=== PATIENT | female | born 1990 | race Caucasian/White ===

== ENCOUNTER → 2022-10-07 14:50 | Outpatient (BNVA) | payer OTHER, SELFPAY | PROVIDERS: Family Provider Family Medicine; PCP Family Medicine; Visit Provider Obstetrics & Gynecology | DX: Z01.419 Encounter for gynecological examination (general) (routine) without abnormal findings (principal); Z30.9 Encounter for contraceptive management, unspecified | CPT/HCPCS: 83036; 87624 ==

== ENCOUNTER → 2023-03-21 14:19 | Outpatient (BNVA) | payer OTHER, SELFPAY | PROVIDERS: Family Provider Family Medicine; PCP Family Medicine; Visit Provider Obstetrics & Gynecology | DX: Z32.00 Encounter for pregnancy test, result unknown (principal) | CPT/HCPCS: 84702 ==

== ENCOUNTER → 2023-03-24 13:55 | Outpatient (BNVA) | payer OTHER, SELFPAY | PROVIDERS: Family Provider Family Medicine; PCP Family Medicine; Visit Provider Obstetrics & Gynecology | DX: N94.6 Dysmenorrhea, unspecified (principal); Z32.00 Encounter for pregnancy test, result unknown; R10.32 Left lower quadrant pain; R93.89 Abnormal findings on diagnostic imaging of other specified body structures | CPT/HCPCS: 76817; 84702; 85025; 86900 ==

== ENCOUNTER → 2023-03-29 07:50 | Day surgery (SDC) | payer OTHER, SELFPAY ==
[2023-03-28 15:29] VITALS: BMI 20.9
[2023-03-29 08:27] LABS: Basophils # 0.1 10^3/uL (0.0-0.1); Basophils % 0.5 %; Eosinophils # 0.1 10^3/uL (0.0-0.8); Eosinophils % 0.9 %; Hematocrit 29.9 % (37.0-47.0); Hemoglobin 9.2 g/dL (11.5-15.3); Lymphocytes # 2.3 10^3/uL (0.8-4.8); Lymphocytes % 24.1 %; Mean Corpuscular HGB Conc 30.8 g/dL (30.0-36.0); Mean Corpuscular Hemoglobin 28.8 pg (28.0-34.0); Mean Corpuscular Volume 93.4 fl (81-99); Mean Platelet Volume 9.1 fL (7.4-10.4); Monocytes # 0.4 10^3/uL (0.2-0.9); Monocytes % 3.9 %; Neutrophils # 6.76 10^3/uL (1.8-7.7); Neutrophils % 70.1 %; Nucleated Red Blood Cells % 0 %; Platelet Count 330 10^3/cmm (130-400); White Blood Count 9.7 10^3/uL (4.0-10.0)
[2023-03-29 08:52] LABS: HCG Quantitative 54.07 mIU/mL
[2023-03-29 09:03] LABS: Alanine Aminotransferase 16 U/L (0-33); Albumin Level 3.7 g/dL (3.5-5.2); Alkaline Phosphatase 48 U/L (35-105); Anion Gap 14.2 (5-19); Aspartate Amino Transferase 12 U/L (0-32); Blood Urea Nitrogen 11 mg/dL (6-20); Calcium 8.7 mg/dL (8.5-10.5); Carbon Dioxide 24 mmol/L (22-29); Chloride 107 mmol/L (98-107); Globulin 2.7 g/dL (1.3-4.6); Glomerular Filtration Rate 115.1 mL/min (90-130); Glucose 83 mg/dL (65-115); Osmolality Calculated 291 mOsm/kg (285-295); Potassium 4.2 mmol/L (3.5-5.1); Sodium 141 mmol/L (136-145); Total Bilirubin 0.2 mg/dL (0.15-1.2); Total Protein 6.4 g/dL (6.6-8.7)
[2023-03-29 09:11] LABS: Add Urine Microscopic? YES; Bilirubin Urine Neg (Negative); Blood Urine 3+ (Negative); Glucose Urine UA Norm (Normal); Ketones Urine Negative (Negative); Leukocyte Esterase Urine 1+ (Negative); Nitrate Urine Negative (Negative); Protein Urine Neg (Negative); Urine Color Yellow (Yellow); Urobilinogen Urine Norm (Negative); pH Urine 5 (5-7)
[2023-03-29 09:12] LABS: Bacteria Urine TRACE /hpf; RBC Urine 0-4 /hpf (0-2)
[2023-03-29] MEDS: sodium chloride 0.9% 500 ML IV (09:26)
[2023-03-29] MEDS: scopolamine 1.5 Patch 1 PATCH TRANSDERMA (09:26)
[2023-03-29] MEDS: sodium chloride 0.9% 1,000 ML 30 ML IV (09:26)
--- NOTE | 2023-03-29 09:48 | W.PM.OPSUD ---
Surgery/Procedure H&P Update DATE OF PROCEDURE: March 29, 2023 DATE H&P PERFORMED: 03/27/23 H&P UPDATE INFORMATION: I have reviewed H&P completed within last 30 days, I have examined patient prior to procedure and No changes to prior documentation PREOP DIAGNOSIS: Incomplete AB PLANNED PROCEDURE: Operation Date: 03/29/23 10:15 Proposed Procedures p Suction dilation and curettage 93453,O03.4(Not Applicable) - Sonu Isaac MD
[2023-03-29] MEDS: ceFAZolin 2,000 MG in sodium chloride 0.9% (plus) 50 ML 100 MG IV (10:04)
[2023-03-29] MEDS: lidocaine-epi 2% 20 mL INJ 10 ML INJECTION (10:30)
[2023-03-29 10:40] VITALS: BP 99/54; PULSE 93; RESP 16; TEMP 36.3; O2SAT 100
--- NOTE | 2023-03-29 10:40 | PM.OP ---
Operative Report Date of procedure: March 29, 2023 Pre-op diagnosis: Preop Diagnosis Incomplete AB Post-op diagnosis: Same Procedure done: Suction dilation and curettage Specimens removed/disposition: Part of conception Surgeon: Sonu Isaac MD Estimated blood loss (mL): 25 IV fluids (mL): 300 Brief History: Mrs. Skinner 33-year-old female G1, P0 with an EGA of approximately 6 to 7 weeks with an incomplete miscarriage. Procedure: After informed consent, the patient was taken to the Operating Room where general anesthesia was administered. The patient was examined under anesthesia and found to have a normal uterus with normal adnexa. She was placed in the dorsal lithotomy position and prepped and draped in sterile fashion. A sterile weighted speculum was placed in the patient?s vagina. A single-tooth tenaculum was then applied to the cervix. The uterus was then gently sounded to 8 cm and a suction curette was advanced gently to the uterine fundus and product of conception emptied. A sharp curettage was then performed until a gritty texture was noted. There was minimal bleeding noted and the tenaculum was removed with good hemostasis noted. The patient tolerated the procedure well. The patient was taken to the recovery area in stable condition.
[2023-03-29 10:45] VITALS: BP 100/57; PULSE 91; RESP 16; O2SAT 100
[2023-03-29 10:50] VITALS: BP 95/53; PULSE 84; RESP 16; O2SAT 100
[2023-03-29 10:55] VITALS: BP 96/56; PULSE 82; RESP 16; O2SAT 100
[2023-03-29 10:59] VITALS: BP 96/54; PULSE 89; RESP 16; TEMP 36.7; O2SAT 99
[2023-03-29] MEDS: ibuprofen 800 mg tablet PO (12:12)
--- NOTE | 2023-03-29 14:42 | ANES.PREANE2 ---
Pre-Anesthetic Assessment Height/Weight: Height 1.8 m Weight 68.039 kg Temp Pulse Resp BP Pulse Ox O2 Del Method 98.1 F 89 16 96/54 99 Room Air 03/29/23 10:59 03/29/23 10:59 03/29/23 10:59 03/29/23 10:59 03/29/23 10:59 03/29/23 10:59 Preop Diagnosis: Incomplete AB Operation Date: 03/29/23 10:15 Proposed Procedures p Suction dilation and curettage 02303,O03.4(Not Applicable) - Sonu Isaac MD Familial anesthetic complications: none Was Beta Neda taken within 24 hours: N/A Was Clonidine taken within 24 hours: N/A Last intake: Intake Last Liquid Date 03/28/23 Last Liquid Time 22:30 Last Solid Date 03/28/23 Last Solid Time 22:30 Social Tobacco and No alcohol Exam alert, oriented x 3, clear to auscultation bilaterally and regular rate & rhythm Airway Submandibular: within normal limits Cervical ROM: within normal limits Mallampati: Class II Dentition: full History/ROS No significant history except as noted Anesthetic Plan ASA status: 2 Anesthesia: General Medications/Allergies Home Medications Medication Instructions Recorded Confirmed Last Taken Type ibuprofen 800 mg tablet 800 mg PO Q8H PRN pain #60 tabs 10/07/22 03/28/23 03/28/23 Rx ibuprofen 800 mg tablet 800 mg PO TID postoperative pain 03/29/23 03/29/23 Unknown Rx #60 tabs Allergies Allergy/AdvReac Type Severity Reaction Status Date / Time codeine Allergy Intermediate just Verified 03/27/23 15:39 doesn't like the way it makes her feel. Current Medications Generic Name Dose Route Start Last Admin Trade Name Freq PRN Reason Stop Dose Admin Sodium Chloride 1,000 mls @ 30 mls/hr 03/29/23 09:15 03/29/23 11:16 Sodium Chloride 0.9% IV 03/30/23 09:14 Infused .Q24H RYDER Infusion PFSH Anesthesia Medical History Encounter for well woman exam with routine gynecological exam Family History Father Hypertension Cancer lung cancer dx at age 60, metastasized, . Sister Cancer cancer dx at age 37,unknown type, PET scan suggestive of colon and breast. Denies family history of Colon cancer Ovarian cancer Diabetes Clotting disorder Heart disease Hyperlipidemia Breast cancer Anesthesia complication Bleeding disorder Uterine cancer Thyroid condition Stroke Social History Smoking and tobacco status: current every day smoker cigarettes [ Other cigarette details: 4 cigs/day] Alcohol intake: current Alcohol intake frequency: holidays/special occasions only Alcohol type: beer and wine Substance/Drug Use: never Data Anesthesia 03/29/23 08:13 03/29/23 08:13 Short CBC 03/29/23 Range/Units 08:13 WBC 9.7 (4.0-10.0) 10^3/uL Hgb 9.2 L (11.5-15.3) g/dL Hct 29.9 L (37.0-47.0) % MCV 93.4 (81-99) fl Plt Count 330 (130-400) 10^3/cmm Neut % (Auto) 70.1 % Neut # (Auto) 6.76 (1.8-7.7) 10^3/uL BMP 03/29/23 08:13 Sodium 141 Potassium 4.2 Chloride 107 Carbon Dioxide 24 BUN 11 Creatinine 0.6 Glucose 83 Calcium 8.7 Liver Function 03/29/23 Range/Units 08:13 Total Bilirubin 0.2 (0.15-1.2) mg/dL AST 12 (0-32) U/L ALT 16 (0-33) U/L Alkaline Phosphatase 48 (35-105) U/L Albumin 3.7 (3.5-5.2) g/dL Urine 03/29/23 Range/Units 08:25 Urine Color Yellow (Yellow) Urine Appearance Sl cloudy A (CLEAR) Urine pH 5 (5-7) Ur Specific [place] 1.030 (1.005-1.030) Urine Protein Neg (Negative) Urine Glucose (UA) Norm (Normal) Urine Ketones Negative (Negative) Urine Nitrate Negative (Negative) Urine Bilirubin Neg (Negative) Ur Leukocyte Esterase 1+ H (Negative) Urine RBC 0-4 H (0-2) /hpf Urine WBC 5-10 H (0-5) /hpf Blood Bank 03/29/23 08:13 Blood Type A Positive Rho(D) Type Positive Antibody Screen Negative Cardiac Studies: No Data to Display
--- NOTE | 2023-03-29 15:31 | ANE.PACU2 ---
Inpatient post-anesthesia follow up: Airway intact: Yes Vital signs: Temperature 98.1 F Pulse Rate 89 Respiratory Rate 16 Blood Pressure 96/54 Pulse Oximetry 99 Oxygen Delivery Me thod Room Air Oxygen Flow Rate Fraction of Inspir ed Oxygen Hydration adequate: Yes Nausea and vomiting: No Pain level: 2 Mental status: Baseline
== END | disposition home or self-care (01) ==
PROVIDERS: PCP Family Medicine; Visit Provider Obstetrics & Gynecology
PROC: (CPT 59812; principal; 2023-03-29 10:05)
DX: O03.4 Incomplete spontaneous abortion without complication (principal); F17.200 Nicotine dependence, unspecified, uncomplicated
CPT/HCPCS: 59812; 36415; 80053; 81001; 81025; 81229; 84702; 85025; 86850; 86900; 88305; A4216; J0690; J1100; J2250; J2405; J2704; J3010; J7030; J7040

== ENCOUNTER → 2023-08-23 10:12 | Outpatient (BNVA) | payer OTHER, SELFPAY | PROVIDERS: PCP Family Medicine; Visit Provider Nurse Practitioner Women's Health | DX: Z34.91 Encounter for supervision of normal pregnancy, unspecified, first trimester (principal); Z3A.09 9 weeks gestation of pregnancy | CPT/HCPCS: 76817; 81025 ==

== ENCOUNTER → 2023-08-29 07:46 | Outpatient (BNVA) | payer OTHER, SELFPAY | PROVIDERS: PCP Family Medicine; Visit Provider Nurse Practitioner Women's Health | DX: O09.899 Supervision of other high risk pregnancies, unspecified trimester; O99.330 Smoking (tobacco) complicating pregnancy, unspecified trimester | CPT/HCPCS: 80307; 84315; 85027; 86592; 86762; 86803; 86850; 86900; 87086; 87340; 87806 ==

== ENCOUNTER → 2023-09-15 11:00 | Outpatient (BNVA) | payer OTHER, SELFPAY | PROVIDERS: PCP Family Medicine; Visit Provider Obstetrics & Gynecology | DX: O09.899 Supervision of other high risk pregnancies, unspecified trimester (principal); Z34.90 Encounter for supervision of normal pregnancy, unspecified, unspecified trimester | CPT/HCPCS: 81000; 87491; 87591 ==

== ENCOUNTER → 2023-10-06 12:36 | Outpatient (BNVA) | payer OTHER, SELFPAY | PROVIDERS: PCP Family Medicine; Visit Provider Nurse Practitioner Women's Health | DX: O09.899 Supervision of other high risk pregnancies, unspecified trimester (principal); O99.330 Smoking (tobacco) complicating pregnancy, unspecified trimester | CPT/HCPCS: 81000 ==

== ENCOUNTER → 2023-10-20 08:55 | Outpatient (BNVA) | payer OTHER, SELFPAY | PROVIDERS: PCP Family Medicine; Visit Provider Obstetrics & Gynecology | DX: O09.899 Supervision of other high risk pregnancies, unspecified trimester (principal); Z3A.00 Weeks of gestation of pregnancy not specified | CPT/HCPCS: 82105 ==

== ENCOUNTER → 2023-11-08 14:13 | Outpatient (BNVA) | payer OTHER, SELFPAY | PROVIDERS: PCP Family Medicine; Visit Provider Obstetrics & Gynecology | DX: Z34.92 Encounter for supervision of normal pregnancy, unspecified, second trimester (principal); Z3A.20 20 weeks gestation of pregnancy | CPT/HCPCS: 76805 ==

== ENCOUNTER → 2023-11-10 08:44 | Outpatient (BNVA) | payer OTHER, SELFPAY | PROVIDERS: PCP Family Medicine; Visit Provider Obstetrics & Gynecology | DX: O09.899 Supervision of other high risk pregnancies, unspecified trimester (principal); Z3A.00 Weeks of gestation of pregnancy not specified | CPT/HCPCS: 81000 ==

== ENCOUNTER → 2023-12-06 09:04 | Outpatient (BNVA) | payer OTHER, SELFPAY | PROVIDERS: PCP Family Medicine; Visit Provider Nurse Practitioner Women's Health | DX: Z34.90 Encounter for supervision of normal pregnancy, unspecified, unspecified trimester (principal) | CPT/HCPCS: 76816 ==

== ENCOUNTER → 2023-12-08 11:00 | Outpatient (BNVA) | payer OTHER, SELFPAY | PROVIDERS: PCP Family Medicine; Visit Provider Nurse Practitioner Women's Health | DX: O09.899 Supervision of other high risk pregnancies, unspecified trimester (principal); O99.332 Smoking (tobacco) complicating pregnancy, second trimester; Z3A.24 24 weeks gestation of pregnancy | CPT/HCPCS: 81000; 82950 ==

== ENCOUNTER → 2024-01-03 08:49 | Outpatient (BNVA) | payer OTHER, SELFPAY | PROVIDERS: PCP Family Medicine; Visit Provider Obstetrics & Gynecology | DX: O09.899 Supervision of other high risk pregnancies, unspecified trimester (principal); Z3A.28 28 weeks gestation of pregnancy | CPT/HCPCS: 81000; 85025 ==

== ENCOUNTER → 2024-01-19 07:53 | Outpatient (BNVA) | payer OTHER, SELFPAY | PROVIDERS: PCP Family Medicine; Visit Provider Obstetrics & Gynecology | DX: O09.899 Supervision of other high risk pregnancies, unspecified trimester (principal); Z3A.30 30 weeks gestation of pregnancy | CPT/HCPCS: 80053; 81000; 82570; 84156; 84550; 85025 ==

== ENCOUNTER → 2024-02-02 08:42 | Outpatient (BNVA) | payer OTHER, SELFPAY | PROVIDERS: PCP Family Medicine; Visit Provider Obstetrics & Gynecology | DX: O09.899 Supervision of other high risk pregnancies, unspecified trimester (principal); Z3A.32 32 weeks gestation of pregnancy | CPT/HCPCS: 81000 ==

== ENCOUNTER 2024-02-03 23:20 | Outpatient (CLI) | payer OTHER, SELFPAY ==
[2024-02-03 23:30] VITALS: BP 132/57; PULSE 79
[2024-02-03 23:46] VITALS: BP 113/61; PULSE 78
[2024-02-03 23:47] VITALS: BMI 27.1
[2024-02-03 23:54] VITALS: BP 113/61; PULSE 78
== END 2024-02-03 23:56 | disposition home or self-care (01) ==
LOC: OPOB 23:20 → OBGYN 23:21
PROVIDERS: PCP Family Medicine; Visit Provider Obstetrics & Gynecology
DX: O26.899 Other specified pregnancy related conditions, unspecified trimester (principal); Z3A.00 Weeks of gestation of pregnancy not specified; R10.9 Unspecified abdominal pain
CPT/HCPCS: 59025; 99211

== ENCOUNTER 2024-02-03 23:57 | Emergency (ER) | payer OTHER, SELFPAY ==
[2024-02-04 00:06] VITALS: BP 114/61; PULSE 73; RESP 16; TEMP 36.7; O2SAT 99; BMI 27.1
--- NOTE | 2024-02-04 00:13 | USR_ITS ---
PROCEDURE INFORMATION: Exam: US Abdomen, Limited; Right Upper Quadrant Exam date and time: 02/04/2024 1:30 AM Age: 33 years old Clinical indication: Abdominal pain; Localized; Right upper quadrant (ruq); ; Additional info: Ruq/back pain; 30 wks preg TECHNIQUE: Imaging protocol: Real time ultrasound of the abdomen with image documentation. Limited exam focused on the right upper quadrant. COMPARISON: [place] [id number] 12/06/2023 9:09 AM FINDINGS: Liver: Normal. No masses. Gallbladder: There is mild gallbladder wall thickening measuring 3 mm. However, the gallbladder appears contracted. Biliary ducts: Normal. No stones. No dilation. Pancreas: Visualized pancreas is unremarkable. Right kidney: There is moderate hydronephrosis and hydroureter seen on the right without evidence of obstructing ureteral calculi. This may be secondary to extrinsic compression from the gravid uterus. US/US gall bladder [id number] IMPRESSION: Moderate hydronephrosis and hydroureter present on the right without evidence of obstructing ureteral calculi. Extrinsic compression of the ureter by the gravid uterus could have this appearance.
--- NOTE | 2024-02-04 00:13 | W.ED.ABDPA2 ---
Documented by User: PATSY House 02/04/24 00:31 HPI - Abdominal Pain General: Chief Complaint: Abdominal Pain Stated Complaint: OB thinks gallbladder. baby is good Time Seen by Provider: 02/04/24 00:03 Source: patient Mode of arrival: ambulatory Limitations: no limitations History of Present Illness: Patient is a 33-year-old [id number] female at roughly 30-31 weeks for evaluation of RUQ abdominal pain x 1 week. She feels like pain is intermittent but worsening this evening thus prompting her evaluation. She was initially seen at OB and had fetus monitored which was normal. She was then referred to the ED stating her OB provider thought it could be her gallbladder. She feels like pain radiates around into her back and shoulder blades. She initially felt like it was secondary to baby positioning. She is not having N/V. Reports constipation but attributes that to . She has not been running fevers. No recent illness. She does not complain of cough, shortness of breath, difficulty breathing, or chest pain. She arrives with stable vital signs. Denies urinary complaints apart from urinary frequency that she attributes to . MD elicited complaint: abdominal pain Pertinent past history: none Onset (ago): day(s) Pain Consistency: intermittent Location: RUQ Severity: moderate Radiation: back Migration to: no migration Exacerbating factors: nothing Relieving factors: nothing Associated Symptoms: Reports constipation (attributes to ); Denies chills, GI cramping, dysuria, fever(s), nausea, syncope and vomiting Related Data: Patient : Yes Review of Systems Const: Denies: fever(s), chills, body aches, fatigue or malaise Card: Denies: chest pain, palpitations, irregular heart rhythm, lightheadedness, syncope or pre-syncope Resp: Denies: dyspnea, productive cough, non-productive cough, pain on inspiration, hemoptysis or chest congestion GI: Reports: abdominal pain and constipation (attributes to ); Denies: nausea, vomiting or GI cramping : Reports: urinary frequency (attributes to ); Denies: flank pain, difficulty voiding, dysuria, urinary urgency or urinary hesitancy Musc: Reports: back pain; Denies: neck pain, extremity pain, extremity swelling, joint pain or joint swelling Skin/Breast: Denies: rash Neuro: Denies: headache(s), numbness in extremities, weakness in extremities or sensory changes PFSH ED PFSH: Medical History No pertinent past medical history neghx: htn,dm,thyroid,dvt/pe PCP: none PMS (premenstrual syndrome) Dysmenorrhea Surgical History H/O hand surgery right H/O dilation and curettage performed by Dr. Isaac Family History Father Hypertension Cancer lung cancer dx at age 60, metastasized, . Sister Cancer cancer dx at age 37,unknown type, PET scan suggestive of colon and breast. Denies family history of Colon cancer Ovarian cancer Diabetes Clotting disorder Heart disease Hyperlipidemia Breast cancer Anesthesia complication Bleeding disorder Uterine cancer Thyroid disease Stroke Physical Exam Const: COMMON NORMALS: no acute distress, average body habitus, patient oriented x3, no limitations, healthy appearing, alert and well nourished Eye: COMMON NORMALS: no scleral icterus Chest: COMMONS NORMALS: normal inspection of the chest and normal palpation of entire chest wall Resp: COMMON NORMALS: normal respiratory effort and clear to auscultation bilaterally AUSCULTATION: clear to auscultation bilaterally Cardio: COMMON NORMALS: regular rate and regular rhythm RATE: regular rate RHYTHM: regular rhythm GI: COMMON NORMALS: Normal to inspection, nondistended, normoactive bowel sounds present, Soft to palpation, No hepatosplenomegaly present and no masses INSPECTION: Yes normal to inspection and Yes gravid abdomen AUSCULTATION: Yes normoactive bowel sounds PALPATION: Yes Soft to palpation, Yes Tenderness to palpation present (GI) (mild RUQ tenderness), No Guarding due to palpation present (GI), No Rigid due to palpation and Yes No hepatosplenomegaly present : COMMON NORMALS: Yes no CVA tenderness BLADDER/KIDNEY EXAM: Yes no CVA tenderness Back/Pelvis: COMMON NORMALS: no CVA tenderness, thoracic and lumbar spine normal to inspection, no thoracic nor lumbar tenderness and thoraco-lumbar ROM normal Extremity: GENERAL: Yes normal exam except as noted Neuro: COMMON NORMALS: patient oriented x3, moves all extremities, no focal motor deficits, no sensory deficits noted and gait normal SENSORIUM/ORIENTATION: Yes alert Skin: COMMON NORMALS: no rashes or lesions noted GENERAL SKIN EXAM: no rashes or lesions noted Course Vital Signs: Vital signs: Vital Signs Temperature 98.1 F 02/04/24 00:06 Pulse Rate 72 02/04/24 02:40 Respiratory Rate 14 02/04/24 04:17 Blood Pressure 95/61 02/04/24 04:17 Pulse Oximetry 99 02/04/24 04:17 Oxygen Delivery Me thod Room Air 02/04/24 02:40 MDM - Abdominal Pain Lab Data 02/04/24 00:18 02/04/24 00:18 Labs/Radiology: Radiology Impressions Gallbladder Ultrasound 02/04/24 00:13 IMPRESSION: Moderate hydronephrosis and hydroureter present on the right without evidence of obstructing ureteral calculi. Extrinsic compression of the ureter by the gravid uterus could have this appearance. Abdomen/Pelvis CT 02/04/24 02:00 IMPRESSION: There is hydronephrosis and hydroureter present on the right secondary to compression of the ureter the gravid uterus. Laboratory Results WBC 11.58 10^3/uL (3.29-11.43) H 02/04/24 00:18 RBC 3.10 10^6/uL (3.85-5.65) L 02/04/24 00:18 Hgb 9.20 g/dL (11.27-16.99) L 02/04/24 00:18 Hct 28.4 % (36-47) L 02/04/24 00:18 MCV 91.6 fl (85-98) 02/04/24 00:18 MCH 29.7 pg (27-33) 02/04/24 00:18 MCHC 32.4 g/dL (30-55) 02/04/24 00:18 RDW 14.0 % (12.1-15.1) 02/04/24 00:18 Plt Count 269 10^3/cmm (157-399) 02/04/24 00:18 MPV 8.9 fL (7.4-10.4) 02/04/24 00:18 Neut % (Auto) 62.5 % 02/04/24 00:18 Lymph % (Auto) 28.8 % 02/04/24 00:18 [place] % (Auto) 6.6 % 02/04/24 00:18 Eos % (Auto) 0.7 % 02/04/24 00:18 Baso % (Auto) 0.3 % 02/04/24 00:18 Neut # (Auto) 7.24 10^3/uL (1.8-7.7) 02/04/24 00:18 Lymph # (Auto) 3.3 10^3/uL (0.8-4.8) 02/04/24 00:18 [place] # (Auto) 0.8 10^3/uL (0.2-0.9) 02/04/24 00:18 Eos # (Auto) 0.1 10^3/uL (0.0-0.8) 02/04/24 00:18 Baso # (Auto) 0.0 10^3/uL (0.0-0.1) 02/04/24 00:18 Nucleated RBC % (auto) 0 % 02/04/24 00:18 Nucleated RBCs # 0.0 /100WBC 02/04/24 00:18 Sodium 137 mmol/L (136-145) 02/04/24 00:18 Potassium 3.7 mmol/L (3.5-5.1) 02/04/24 00:18 Chloride 104 mmol/L (98-107) 02/04/24 00:18 Carbon Dioxide 21 mmol/L (22-29) L 02/04/24 00:18 Anion Gap 15.7 (5-19) 02/04/24 00:18 BUN 6 mg/dL (6-20) 02/04/24 00:18 Creatinine 0.4 mg/dL (0.5-0.9) L 02/04/24 00:18 GFR Calculation 183.8 mL/min (90-130) H 02/04/24 00:18 Glucose 98 mg/dL (65-115) 02/04/24 00:18 Calculated Osmolality 282 mOsm/kg (285-295) L 02/04/24 00:18 Calcium 8.7 mg/dL (8.5-10.5) 02/04/24 00:18 Total Bilirubin 0.2 mg/dL (0.15-1.2) 02/04/24 00:18 AST 20 U/L (0-32) 02/04/24 00:18 ALT 34 U/L (0-33) H 02/04/24 00:18 Alkaline Phosphatase 89 U/L (35-105) 02/04/24 00:18 Total Protein 6.1 g/dL (6.6-8.7) L 02/04/24 00:18 Albumin 3.3 g/dL (3.5-5.2) L 02/04/24 00:18 Globulin 2.8 g/dL (1.3-4.6) 02/04/24 00:18 Lipase 27 U/L (13-60) 02/04/24 00:18 Urine Color Yellow (Yellow) 02/04/24 Unknown Urine Appearance Hazy (CLEAR) A 02/04/24 Unknown Urine pH 6 (5-7) 02/04/24 Unknown Ur Specific [place] 1.020 (1.005-1.030) 02/04/24 Unknown Urine Protein Neg (Negative) 02/04/24 Unknown Urine Glucose (UA) Norm (Normal) 02/04/24 Unknown Urine Ketones Negative (Negative) 02/04/24 Unknown Urine Blood Neg (Negative) 02/04/24 Unknown Urine Nitrate Negative (Negative) 02/04/24 Unknown Urine Bilirubin Neg (Negative) 02/04/24 Unknown Urine Urobilinogen Neg mg/dL (Negative) 02/04/24 Unknown Ur Leukocyte Esterase 2+ (Negative) H 02/04/24 Unknown Urine RBC 0-4 /hpf (0-2) H 02/04/24 Unknown Urine WBC 25-40 /hpf (0-5) H 02/04/24 Unknown Ur Squamous Epith Cells 15-25 /hpf (0-5) H 02/04/24 Unknown Amorphous Sediment Trace /hpf 02/04/24 Unknown Urine Bacteria 2+ /hpf (NONE) H 02/04/24 Unknown Urine Mucus Trace /hpf 02/04/24 Unknown Discharge Plan Discharge Patient Disposition: Home Clinical Impression: Pyelonephritis, Renal colic Condition: Stable Prescriptions: New Percocet 7.5-325 mg tablet 1 tab PO Q6H PRN (Reason: pain) Qty: 10 0RF ondansetron 4 mg tablet,disintegrating 4 mg PO Q6H PRN (Reason: nausea and vomiting) Qty: 14 0RF cefdinir 300 mg capsule 300 mg PO BID 7 Days Qty: 14 0RF No Action Classic 28 mg iron- 800 mcg tablet 1 tab PO DAILY famotidine [Pepcid] 20 mg tablet 20 mg PO DAILY Discharge Orders: Discharge ED (Routine); Ordered 02/04/24 Ordered By: Hardeep Huang Referrals: Myles Hopkins MD [Primary Care Provider] - Patient Instructions: Abdominal Pain (ED), Opioid Safety, Pain Management Activity Restrictions/Additional Instructions: Antibiotics as directed. Plenty of clear liquids. Return for worsening pain despite treatment, vomiting liquids or medications, fever greater than 100 despite antibiotics, evidence of vaginal bleeding or loss of fluid, etc. Call your doctor on Monday and let them know you were seen here and your diagnosis. They may wish to see you or provide further recommendations. Coding Level of Care Code ED Photo Lab Manager for Chg Fwd Documented by User: Hardeep Hunag, 02/04/24 04:54 HPI - Abdominal Pain General: Chief Complaint: Abdominal Pain Stated Complaint: OB thinks gallbladder. baby is good Time Seen by Provider: 02/04/24 00:03 [facility] ED PFSH: Medical History No pertinent past medical history neghx: htn,dm,thyroid,dvt/pe PCP: none PMS (premenstrual syndrome) Dysmenorrhea Surgical History H/O hand surgery right H/O dilation and curettage performed by Dr. Isaac Family History Father Hypertension Cancer lung cancer dx at age 60, metastasized, . Sister Cancer cancer dx at age 37,unknown type, PET scan suggestive of colon and breast. Denies family history of Colon cancer Ovarian cancer Diabetes Clotting disorder Heart disease Hyperlipidemia Breast cancer Anesthesia complication Bleeding disorder Uterine cancer Thyroid disease Stroke Course Vital Signs: Vital signs: Vital Signs Temperature 98.1 F 02/04/24 00:06 Pulse Rate 72 02/04/24 02:40 Respiratory Rate 14 02/04/24 04:17 Blood Pressure 95/61 02/04/24 04:17 Pulse Oximetry 99 02/04/24 04:17 Oxygen Delivery Me thod Room Air 02/04/24 02:40 MDM - Abdominal Pain Medical Decision Making 33-year-old female presenting with right upper quadrant/right flank pain. She was originally seen by Mrs. ServinGasper ROGERS. I agree with her history, evaluation, and treatment. She has had no vaginal bleeding. She still feeling baby movement. She was evaluated in OB prior to her arrival here. Her creatinine is 0.4. White blood cell count 11.6. Liver enzymes are normal. Lipase is 27. She has 2+ leukocyte Estrace with a slightly contaminated urinalysis containing 25-40 white blood cells. Ultrasound of the gallbladder was negative for cholecystitis, but shows moderate hydronephrosis and hydroureter on the right. There is no definite evidence of obstructing renal calculus, but due to evidence of UTI/pyelonephritis, was necessary to rule out mechanical obstruction. She remains afebrile. She has received Rocephin here as well as a fluid bolus. She will be allowed home on antibiotics as she is not vomiting. She received antiemetics and pain medication. Close outpatient follow-up will be necessary. She was told to call her OB tomorrow/Monday morning. Lab Data 02/04/24 00:18 02/04/24 00:18 Labs/Radiology: Radiology Impressions Gallbladder Ultrasound 02/04/24 00:13 IMPRESSION: Moderate hydronephrosis and hydroureter present on the right without evidence of obstructing ureteral calculi. Extrinsic compression of the ureter by the gravid uterus could have this appearance. Abdomen/Pelvis CT 02/04/24 02:00 IMPRESSION: There is hydronephrosis and hydroureter present on the right secondary to compression of the ureter the gravid uterus. Laboratory Results WBC 11.58 10^3/uL (3.29-11.43) H 02/04/24 00:18 RBC 3.10 10^6/uL (3.85-5.65) L 02/04/24 00:18 Hgb 9.20 g/dL (11.27-16.99) L 02/04/24 00:18 Hct 28.4 % (36-47) L 02/04/24 00:18 MCV 91.6 fl (85-98) 02/04/24 00:18 MCH 29.7 pg (27-33) 02/04/24 00:18 MCHC 32.4 g/dL (30-55) 02/04/24 00:18 RDW 14.0 % (12.1-15.1) 02/04/24 00:18 Plt Count 269 10^3/cmm (157-399) 02/04/24 00:18 MPV 8.9 fL (7.4-10.4) 02/04/24 00:18 Neut % (Auto) 62.5 % 02/04/24 00:18 Lymph % (Auto) 28.8 % 02/04/24 00:18 [place] % (Auto) 6.6 % 02/04/24 00:18 Eos % (Auto) 0.7 % 02/04/24 00:18 Baso % (Auto) 0.3 % 02/04/24 00:18 Neut # (Auto) 7.24 10^3/uL (1.8-7.7) 02/04/24 00:18 Lymph # (Auto) 3.3 10^3/uL (0.8-4.8) 02/04/24 00:18 [place] # (Auto) 0.8 10^3/uL (0.2-0.9) 02/04/24 00:18 Eos # (Auto) 0.1 10^3/uL (0.0-0.8) 02/04/24 00:18 Baso # (Auto) 0.0 10^3/uL (0.0-0.1) 02/04/24 00:18 Nucleated RBC % (auto) 0 % 02/04/24 00:18 Nucleated RBCs # 0.0 /100WBC 02/04/24 00:18 Sodium 137 mmol/L (136-145) 02/04/24 00:18 Potassium 3.7 mmol/L (3.5-5.1) 02/04/24 00:18 Chloride 104 mmol/L (98-107) 02/04/24 00:18 Carbon Dioxide 21 mmol/L (22-29) L 02/04/24 00:18 Anion Gap 15.7 (5-19) 02/04/24 00:18 BUN 6 mg/dL (6-20) 02/04/24 00:18 Creatinine 0.4 mg/dL (0.5-0.9) L 02/04/24 00:18 GFR Calculation 183.8 mL/min (90-130) H 02/04/24 00:18 Glucose 98 mg/dL (65-115) 02/04/24 00:18 Calculated Osmolality 282 mOsm/kg (285-295) L 02/04/24 00:18 Calcium 8.7 mg/dL (8.5-10.5) 02/04/24 00:18 Total Bilirubin 0.2 mg/dL (0.15-1.2) 02/04/24 00:18 AST 20 U/L (0-32) 02/04/24 00:18 ALT 34 U/L (0-33) H 02/04/24 00:18 Alkaline Phosphatase 89 U/L (35-105) 02/04/24 00:18 Total Protein 6.1 g/dL (6.6-8.7) L 02/04/24 00:18 Albumin 3.3 g/dL (3.5-5.2) L 02/04/24 00:18 Globulin 2.8 g/dL (1.3-4.6) 02/04/24 00:18 Lipase 27 U/L (13-60) 02/04/24 00:18 Urine Color Yellow (Yellow) 02/04/24 Unknown Urine Appearance Hazy (CLEAR) A 02/04/24 Unknown Urine pH 6 (5-7) 02/04/24 Unknown Ur Specific [place] 1.020 (1.005-1.030) 02/04/24 Unknown Urine Protein Neg (Negative) 02/04/24 Unknown Urine Glucose (UA) Norm (Normal) 02/04/24 Unknown Urine Ketones Negative (Negative) 02/04/24 Unknown Urine Blood Neg (Negative) 02/04/24 Unknown Urine Nitrate Negative (Negative) 02/04/24 Unknown Urine Bilirubin Neg (Negative) 02/04/24 Unknown Urine Urobilinogen Neg mg/dL (Negative) 02/04/24 Unknown Ur Leukocyte Esterase 2+ (Negative) H 02/04/24 Unknown Urine RBC 0-4 /hpf (0-2) H 02/04/24 Unknown Urine WBC 25-40 /hpf (0-5) H 02/04/24 Unknown Ur Squamous Epith Cells 15-25 /hpf (0-5) H 02/04/24 Unknown Amorphous Sediment Trace /hpf 02/04/24 Unknown Urine Bacteria 2+ /hpf (NONE) H 02/04/24 Unknown Urine Mucus Trace /hpf 02/04/24 Unknown All radiology interpretation(s) finalized by discharge Discharge Plan Discharge Patient Disposition: Home Clinical Impression: Pyelonephritis, Renal colic Condition: Stable Prescriptions: New Percocet 7.5-325 mg tablet 1 tab PO Q6H PRN (Reason: pain) Qty: 10 0RF ondansetron 4 mg tablet,disintegrating 4 mg PO Q6H PRN (Reason: nausea and vomiting) Qty: 14 0RF cefdinir 300 mg capsule 300 mg PO BID 7 Days Qty: 14 0RF No Action Classic 28 mg iron- 800 mcg tablet 1 tab PO DAILY famotidine [Pepcid] 20 mg tablet 20 mg PO DAILY Discharge Orders: Discharge ED (Routine); Ordered 02/04/24 Ordered By: Hardeep Huang Referrals: Myles Hopkins MD [Primary Care Provider] - Patient Instructions: Abdominal Pain (ED), Opioid Safety, Pain Management Activity Restrictions/Additional Instructions: Antibiotics as directed. Plenty of clear liquids. Return for worsening pain despite treatment, vomiting liquids or medications, fever greater than 100 despite antibiotics, evidence of vaginal bleeding or loss of fluid, etc. Call your doctor on Monday and let them know you were seen here and your diagnosis. They may wish to see you or provide further recommendations. Coding Level of Care Code ED Photo Lab Manager for Bobbi Boyer
[2024-02-04 00:19] VITALS: BP 114/61; PULSE 82; RESP 26; O2SAT 97
[2024-02-04 00:29] LABS: Basophils % 0.3 %; Eosinophils # 0.1 10^3/uL (0.0-0.8); Eosinophils % 0.7 %; Hematocrit 28.4 % (36-47); Lymphocytes # 3.3 10^3/uL (0.8-4.8); Lymphocytes % 28.8 %; Mean Corpuscular HGB Conc 32.4 g/dL (30-55); Mean Corpuscular Hemoglobin 29.7 pg (27-33); Mean Corpuscular Volume 91.6 fl (85-98); Mean Platelet Volume 8.9 fL (7.4-10.4); Monocytes # 0.8 10^3/uL (0.2-0.9); Monocytes % 6.6 %; Neutrophils # 7.24 10^3/uL (1.8-7.7); Neutrophils % 62.5 %; Nucleated Red Blood Cells % 0 %; Platelet Count 269 10^3/cmm (157-399); White Blood Count 11.58 10^3/uL (3.29-11.43)
[2024-02-04 00:40] VITALS: BP 114/61; PULSE 88; O2SAT 100
[2024-02-04 00:47] LABS: Alanine Aminotransferase 34 U/L (0-33); Albumin Level 3.3 g/dL (3.5-5.2); Alkaline Phosphatase 89 U/L (35-105); Anion Gap 15.7 (5-19); Aspartate Amino Transferase 20 U/L (0-32); Blood Urea Nitrogen 6 mg/dL (6-20); Calcium 8.7 mg/dL (8.5-10.5); Carbon Dioxide 21 mmol/L (22-29); Chloride 104 mmol/L (98-107); Globulin 2.8 g/dL (1.3-4.6); Glomerular Filtration Rate 183.8 mL/min (90-130); Glucose 98 mg/dL (65-115); Lipase 27 U/L (13-60); Osmolality Calculated 282 mOsm/kg (285-295); Potassium 3.7 mmol/L (3.5-5.1); Sodium 137 mmol/L (136-145); Total Bilirubin 0.2 mg/dL (0.15-1.2); Total Protein 6.1 g/dL (6.6-8.7)
[2024-02-04 00:48] LABS: Creatinine Clr Calc Pharmacy 238.0856
[2024-02-04 00:56] LABS: Add Urine Microscopic? YES; Bilirubin Urine Neg (Negative); Blood Urine Neg (Negative); Glucose Urine UA Norm (Normal); Ketones Urine Negative (Negative); Leukocyte Esterase Urine 2+ (Negative); Nitrate Urine Negative (Negative); Protein Urine Neg (Negative); Urine Appearance Hazy (CLEAR); Urine Color Yellow (Yellow); Urobilinogen Urine Neg (Negative); pH Urine 6 (5-7)
[2024-02-04 01:02] LABS: Amorphous Sediment Urine TRACE /hpf; Bacteria Urine 2+ /hpf; Mucus Urine TRACE /hpf; RBC Urine 0-4 /hpf (0-2); Squamous Epithelial Cell Urine 15-25 /hpf (0-5); WBC Urine 25-40 /hpf (0-5)
--- NOTE | 2024-02-04 02:00 | CTR_ITS ---
PROCEDURE INFORMATION: Exam: CT Abdomen And Pelvis Without Contrast Exam date and time: 02/04/2024 2:08 AM Age: 33 years old Clinical indication: Abdominal pain; Right; Patient HX: RT flank pain with bacteriuria. [place] noted on renal US. ; Additional info: R flank pain, hydronephrosis on renal US, UTI, 30w TECHNIQUE: Imaging protocol: Computed tomography of the abdomen and pelvis without contrast. Radiation optimization: All CT scans at this facility use at least one of these dose optimization techniques: automated exposure control; mA and/or kV adjustment per patient size (includes targeted exams where dose is matched to clinical indication); or iterative reconstruction. COMPARISON: US gall bladder [id number] 02/04/2024 1:30 AM RADIATION DOSE METRICS: Total DLP (mGy-cm): 713.53 FINDINGS: Liver: Normal. No mass. Gallbladder and bile ducts: Normal. No calcified stones. No ductal dilation. Pancreas: Normal. No ductal dilation. Spleen: Normal. No splenomegaly. Adrenal glands: Normal. No mass. Kidneys and ureters: There is hydronephrosis and hydroureter seen on right. There is no evidence of obstructing ureteral calculi. There is compression of the right ureter secondary to the mass effect of the gravid uterus (series 3: Images 137-145). Stomach and bowel: Unremarkable. No obstruction. No mucosal thickening. Appendix: No evidence of appendicitis. Intraperitoneal space: Unremarkable. No free air. No significant fluid collection. Vasculature: Unremarkable. No abdominal aortic aneurysm. Lymph nodes: Unremarkable. No enlarged lymph nodes. Urinary bladder: Unremarkable as visualized. Reproductive: Placenta is anterior. Bones/joints: Unremarkable. No acute fracture. Soft tissues: Unremarkable. Other findings: presentation is vertex. CT/CT kidney stone [id number] IMPRESSION: There is hydronephrosis and hydroureter present on the right secondary to compression of the ureter the gravid uterus.
[2024-02-04 02:27] VITALS: RESP 16; O2SAT 99
[2024-02-04] MEDS: ondansetron 2 mg/ML SDV 2 mL 4 MG IVP (02:27)
[2024-02-04] MEDS: morphine 4 mg/mL SDV 1 mL IVP (02:27)
[2024-02-04] MEDS: sodium chloride 0.9% 1,000 ML 999 ML IV (02:27)
[2024-02-04] MEDS: cefTRIAXone 1,000 MG in sodium chloride 0.9% (plus) 50 ML 100 MG IV (02:29)
[2024-02-04 02:40] VITALS: BP 122/69; PULSE 72; O2SAT 100
[2024-02-04 04:17] VITALS: BP 95/61; RESP 14; O2SAT 99
== END 2024-02-04 04:24 | disposition home or self-care (01) ==
PROVIDERS: Physician Assistant; Emergency Provider Emergency Medicine; PCP Family Medicine
DX: O23.03 Infections of kidney in pregnancy, third trimester (principal); Z3A.31 31 weeks gestation of pregnancy
CPT/HCPCS: 74176; 76705; 80053; 81001; 83690; 85025; 96374; 96375; 99285; J0696; J2270; J2405; J7030

== ENCOUNTER → 2024-02-14 07:49 | Outpatient (BNVA) | payer OTHER, SELFPAY | PROVIDERS: PCP Family Medicine; Visit Provider Obstetrics & Gynecology | DX: Z34.90 Encounter for supervision of normal pregnancy, unspecified, unspecified trimester (principal) | CPT/HCPCS: 76816 ==

== ENCOUNTER 2024-02-16 15:15 | Outpatient (CLI) | payer OTHER, SELFPAY ==
[2024-02-16 15:15] VITALS: RESP 17; BMI 28.3
[2024-02-16 15:35] VITALS: BP 112/55; PULSE 74
[2024-02-16 15:50] VITALS: BP 109/56; PULSE 79
== END 2024-02-16 16:00 ==
LOC: OPOB 15:23 → OBGYN 15:24
PROVIDERS: PCP Family Medicine; Visit Provider Obstetrics & Gynecology
DX: O99.019 Anemia complicating pregnancy, unspecified trimester (principal); Z3A.00 Weeks of gestation of pregnancy not specified; R63.5 Abnormal weight gain
CPT/HCPCS: 59025; 80053; 81000; 82570; 82607; 82728; 82746; 83550; 84156; 85025; 99211

== ENCOUNTER → 2024-02-26 11:45 | Outpatient (BNVA) | payer OTHER, SELFPAY | PROVIDERS: PCP Family Medicine; Visit Provider Obstetrics & Gynecology | DX: O09.899 Supervision of other high risk pregnancies, unspecified trimester (principal); Z3A.36 36 weeks gestation of pregnancy | CPT/HCPCS: 81000; 87081 ==

== ENCOUNTER → 2024-03-04 07:54 | Outpatient (BNVA) | payer OTHER, SELFPAY | PROVIDERS: PCP Family Medicine; Visit Provider Obstetrics & Gynecology | DX: O09.899 Supervision of other high risk pregnancies, unspecified trimester (principal); Z3A.37 37 weeks gestation of pregnancy | CPT/HCPCS: 81000 ==

== ENCOUNTER → 2024-03-11 11:00 | Outpatient (BNVA) | payer OTHER, SELFPAY | PROVIDERS: PCP Family Medicine; Visit Provider Obstetrics & Gynecology | DX: O09.899 Supervision of other high risk pregnancies, unspecified trimester (principal); O99.013 Anemia complicating pregnancy, third trimester; Z3A.38 38 weeks gestation of pregnancy | CPT/HCPCS: 81000; 85025 ==

== ENCOUNTER → 2024-03-18 07:54 | Outpatient (BNVA) | payer OTHER, SELFPAY | PROVIDERS: PCP Family Medicine; Visit Provider Obstetrics & Gynecology | DX: O09.899 Supervision of other high risk pregnancies, unspecified trimester (principal); Z3A.39 39 weeks gestation of pregnancy | CPT/HCPCS: 81000 ==

== ENCOUNTER 2024-03-20 07:15 | Inpatient (IN) | payer OTHER, SELFPAY ==
[2024-03-20] VITALS (81 sets, daily range): BP systolic 54–175; BP diastolic 32–95; PULSE 50–92; RESP 18–20; TEMP 36.5–36.6; O2SAT 94–100; BMI 27.9
[2024-03-20] MEDS: lactated ringers 1,000 ML 999 ML IV ×4 (07:50→23:15)
--- NOTE | 2024-03-20 08:44 | PM.OPHPUD ---
Labor & Delivery H&P Update Date of Procedure: March 20, 2024 Date H&P Performed: 03/18/24 H&P update information: I have reviewed H&P completed within last 30 days, I have examined patient prior to procedure and No changes to prior documentation Admission Diagnosis:
[2024-03-20 08:47] LABS: Basophils # 0.1 10^3/uL (0.0-0.1); Basophils % 0.4 %; Eosinophils # 0.1 10^3/uL (0.0-0.8); Eosinophils % 0.6 %; Hematocrit 32.6 % (36-47); Lymphocytes # 2.6 10^3/uL (0.8-4.8); Lymphocytes % 22.9 %; Mean Corpuscular HGB Conc 33.1 g/dL (30-55); Mean Corpuscular Hemoglobin 30.3 pg (27-33); Mean Corpuscular Volume 91.6 fl (85-98); Mean Platelet Volume 9.5 fL (7.4-10.4); Monocytes # 0.5 10^3/uL (0.2-0.9); Monocytes % 4.4 %; Neutrophils # 7.95 10^3/uL (1.8-7.7); Neutrophils % 70.5 %; Nucleated Red Blood Cells % 0 %; Platelet Count 296 10^3/cmm (157-399); Red Blood Count 3.56 10^6/uL (3.85-5.65); Red Cell Distribution Width 14.6 % (12.1-15.1)
[2024-03-20] MEDS: dextrose 5%-lactated ringers 1,000 ML 125 ML IV (09:16)
[2024-03-20] MEDS: miSOPROStol 100 mcg tablet 25 MCG VAGINAL ×3 (09:21→17:30)
--- NOTE | 2024-03-20 14:32 | P.ANESASSM_ITS ---
Pre-Anesthetic Assessment Height/Weight: Height 1.78 m Weight 88.451 kg Pulse Resp BP O2 Del Method 80 18 110/63 Room Air 03/20/24 13:50 03/20/24 08:28 03/20/24 13:50 03/20/24 07:05 Epidural Familial anesthetic complications: None Was Beta Neda taken within 24 hours: N/A Was Clonidine taken within 24 hours: N/A Last intake: Noon today solid food Social Tobacco and No tobacco <0.5 pack(s) per day Exam alert, oriented x 3, clear to auscultation bilaterally and regular rate & rhythm Airway Submandibular: within normal limits Cervical ROM: within normal limits Mallampati: Class III Dentition: full History/ROS No significant history except as noted and No significant complaints Pulmonary None reported CV/HEM Anemia Hx kidney infection Hepatic None reported GI Gastroesophageal Reflux Disease N/V Metabolic None reported Musc/skel Lower Back Pain Neuropsych None reported Anesthetic Plan ASA status: 2 Anesthesia: Anesthesia Evaluation, General and Regional (specify below) Other: Epidural Risk of > 500 ml blood loss (7ml/kg in children): Yes, adequate IV access and fluids planned Medications/Allergies Home Medications Medication Instructions Recorded Confirmed Last Taken Type vits no.126-ferrous fum 1 tab PO DAILY 09/15/23 03/18/24 02/03/24 History 28 mg iron-folic acid 800 mcg tablet (Classic ) famotidine 20 mg tablet (Pepcid) 20 mg PO DAILY 12/08/23 03/18/24 02/03/24 History ferrous sulfate 325 mg (65 mg 325 mg PO BID Anemia 30 days #60 02/04/24 03/18/24 Unknown Rx iron) tablet tabs ondansetron 4 mg disintegrating 4 mg PO Q6H PRN nausea and 02/04/24 03/18/24 Unknown Rx tablet vomiting #14 tabs Allergies Allergy/AdvReac Type Severity Reaction Status Date / Time codeine Allergy Intermediate just Verified 03/04/24 09:22 doesn't like the way it makes her feel. Current Medications Generic Name Dose Route Start Last Admin Trade Name Freq PRN Reason Stop Dose Admin Dextrose/Lactated Ringer's 1,000 mls @ 125 mls/hr 03/20/24 08:30 03/20/24 09:16 Dextrose 5%-Lactated Ringers IV 125 mls/hr .Q8H RYDER Administration Lactated Ringer's 1,000 mls @ 999 mls/hr 03/20/24 08:27 03/20/24 09:20 Lactated Ringers IV Infused .Q1H1M PRN Infusion Per L&D Rescitation Protocol Misoprostol 25 mcg 03/20/24 08:30 03/20/24 13:21 Misoprostol 100 Mcg Tablet VAGINAL 03/20/24 16:31 25 mcg Q4H RYDER Administration PFSH Anesthesia Medical History No pertinent past medical history neghx: htn,dm,thyroid,dvt/pe PCP: none PMS (premenstrual syndrome) Dysmenorrhea Surgical History H/O hand surgery right H/O dilation and curettage performed by Dr. Isaac Family History Father Hypertension Cancer lung cancer dx at age 60, metastasized, . Sister Cancer cancer dx at age 37,unknown type, PET scan suggestive of colon and breast. Denies family history of Colon cancer Ovarian cancer Diabetes Clotting disorder Heart disease Hyperlipidemia Breast cancer Anesthesia complication Bleeding disorder Uterine cancer Thyroid disease Stroke Female Reproductive History : 1 Data Anesthesia 03/20/24 07:40 Short CBC 03/20/24 Range/Units 07:40 WBC 11.30 (3.29-11.43) 10^3/uL Hgb 10.80 L (11.27-16.99) g/dL Hct 32.6 L (36-47) % MCV 91.6 (85-98) fl Plt Count 296 (157-399) 10^3/cmm Neut % (Auto) 70.5 % Neut # (Auto) 7.95 H (1.8-7.7) 10^3/uL Blood Bank 03/20/24 07:40 Blood Type A Positive Rho(D) Type Rh positive Antibody Screen Negative Cardiac Studies: 2 No Data to Display
[2024-03-20] MEDS: fentaNYL 50 mcg/mL INJ 2mL IVP (19:26)
[2024-03-20] MEDS: ROPivacaine syringe 100 MG/50 ML SYRINGE 10 MG EPIDURAL ×2 (20:10→23:08)
--- NOTE | 2024-03-20 20:14 | ANES.PROC ---
Anesthesia Procedures Procedure/Date: 03/20/24 Epidural: Time Out Performed: Yes Consents Signed: Procedure Consent and NPO Consent Consent: requested by attending/covering physician, from patient, risks and benefits reviewed and patient agrees to proceed Lumbar Level: L3-L4 Epidural position: sitting Epidural procedure: sterile prep of area (betadine), 1% lidocaine to numb the area (3 mLs), neg for paresthesia, test dose given, 1.5% xylocaine 1:200k epi (3 mL/2 mL), 0.2% Ropivacaine bolus ml (5 mLs), placed PCEA, no systemic response, sterile dressing applied, L.U.D. no apparent complications and 0.2% Ropiavacaine @ mls/hr (10 mLs/hr) Additional Comments: Attempt x1. NAVJOT 6cm, catheter threaded to 10cm.
[2024-03-20] MEDS: calcium carbonate 500 mg Chew Tablet 1000 MG PO (22:38)
[2024-03-21] VITALS (43 sets, daily range): BP systolic 104–148; BP diastolic 52–88; PULSE 64–97; RESP 12–18; TEMP 36.4–37.1; O2SAT 94–100
--- NOTE | 2024-03-21 00:13 | P.MISC_ITS ---
Miscellaneous Note Purpose of Documentation: Called to OB 3 due to patients complaints of pain. Pain is noted to be in b ilateral hips. Patient dilated to 9cm. Catheter still at original placement depth. After negative aspiration, 100mcg fentanyl given via epidural and infusion increased to 13mL/hr.
[2024-03-21] MEDS: lactated ringers 1,000 ML 999 ML IV ×2 (00:22→13:43)
--- NOTE | 2024-03-21 01:08 | PM.DELIVERY ---
Delivery Note: Date of delivery: March 21, 2024 Pre-delivery diagnoses: Term Desire permanent sterilization Post-delivery diagnoses: Term delivered Desire permanent sterilization Procedure: Spontaneous vaginal delivery Delivering Physician: Sonu Isaac MD Estimated blood loss (mL): 300 Findings: Term female with weight 3330 g, Apgars 9/9 Delivery: The patient was noted to be complete and pushing, so was placed in the dorsal lithotomy position, prepped and draped in the usual sterile fashion for a vaginal delivery. Pt. Noted to have epidural anesthesia. At 0053 the patient delivered a viable term female infant weighing 3330g with scores of 9 and 9 at one and five minutes, respectively. The vertex was delivered spontaneously over intact perineum. The patient was asked to push and the head delivered spontaneously in the SOPHIE position, over an intact perineum. A nuchal cord was checked and none noted. The anterior shoulder delivered easily and the posterior shoulder followed. The remainder of the was easily delivered and the oropharynx and nasopharynx was bulb suctioned. The was noted to have spontaneous cry and spontaneous movement of all four extremities. The cord was clamped x 2 and cut and noted to have 2 arteries and one vein. The was passed to the mother's abdomen where nursing personnel were in attendance. The placenta delivered intact spontaneously and the uterus was explored. 20 units of Pitocin was placed in the IV bag to firm the uterus. Examination of the cervix and vaginal vault did not reveal any lacerations. A vaginal pack was then placed. Examination of the perineum showed no laceration. The vaginal pack was then removed. The patient tolerated this procedure well, and recovered in L&D with her infant in their LDR room. All sponge and needle counts were correct. Post-Delivery Status: Good and stable History History History 5 Term 0 0 Miscarriages/Ectopic 4 Living Children 0 A&P Assessment and plan (1) Term delivered: Coding Level of Care Code Acute Code for Chg Fwd Diagnoses Term delivered O80
--- NOTE | 2024-03-21 01:15 | P.PN_ITS ---
Subjective 2 Subjective: Mrs. Martines 34-year-old female status post Font[place] ovarian delivery desires permanent sterilization. Vitals/I&O/Wt Last Vital Signs Temp 97.9 F 03/20/24 22:34 Pulse 81 03/21/24 01:10 Resp 20 H 03/20/24 19:26 BP 134/73 03/21/24 01:10 Pulse Ox 100 03/21/24 00:38 O2 Del Method Room Air 03/20/24 07:05 03/20/24 03/20/24 03/21/24 14:59 22:59 06:59 Intake Total 1000 / 1000 2600 / 3600 1320.833 / 4920.833 Balance 1000 / 1000 2600 / 3600 1320.833 / 4920.833 Weight last 48 hrs Weight 88.451 kg Physical Exam 2 Narrative: GA; alert and oriented x 3 HEENT: normal Breasts: engorged Nipples - skin intact Lungs; clear to auscultation Heart: regular rhythm, no murmurs. Abd: Appropriately tender. BS+. Uterine fundus below umbilicus. No Fundal Tenderness. Perineum: normal lochia. Extremities: no edema, no cyanosis, no tenderness. Urinary Catheter Management: Hdz Latex: Cath Placed During This Visit: yes, but has since been removed by the nurse Reason for Continuing Indwelling Catheter: Decision to DC Catheter Urinary Catheter Date of Insertion: 03/20/24 Urinary Catheter Time of Insertion: 20:35 Date Urinary Catheter Removed: 03/21/24 Time Urinary Catheter Discontinued: 00:40 Data 03/22/24 04:35 A&P Assessment and plan (1) Sterilization: []-year-old female desire permanent sterilization. The patient was counseled regarding all methods of contraception, risk and complications. She elected to continue with plan sterilization after delivery. The bilateral salpingectomy is associated with lower failure rates than interval tubal occlusions done via laparoscopy. She was counseled regarding the procedure, alternative, risks and complications. Complications of tubal sterilization include problems like but not limited to anesthesia, hemorrhage, organ damage, and mortality. Although pregnancies after a sterilization procedure are rare, there is substantial risk that any post-sterilization could be ectopic. The overall failure rate is on the order of 0.5% in the first year but a study showed that sterilization failures vary by both age at sterilization and the method used. The study also found that the risks of accumulate over time, and that for women aged 18 to 27 years, failure rates can be as high as 5% with bipolar coagulation and the spring clip. The patient was informed of the risks and benefits of the procedure. Risks included but were not limited to bleeding, infection, and injury to internal organs. The patient was counseled on the risk of sterilization failure. The patient was informed that in the event a occurs the risk of ectopic is increased. The patient was counseled that bilateral tubal ligation is intended to be permanent and nonreversible. She was also counseled that there are nonpermanent forms of control available to her. The patient expressed understanding of the risks involved, all questions were answered, and the patient consented to the procedure. (2) Term delivered: Plan Proceed with sterilization. Attestations 2 Medical Necessity Statement*: In my professional opinion per admitting diagnosis Coding Level of Care Code Acute Code for Chg Fwd Diagnoses Sterilization Z30.2 Term delivered O80
[2024-03-21] MEDS: famotidine 20 mg/2 mL INJ IVP (13:57)
[2024-03-21] MEDS: citric acid-sodium citrate 30 mL UDC PO (13:57)
[2024-03-21] MEDS: metoclopramide 5 mg/mL SDV 2 mL 10 MG IVP (13:57)
[2024-03-21] MEDS: ceFAZolin 2,000 MG in sodium chloride 0.9% (plus) 50 ML 100 MG IV (13:58)
--- NOTE | 2024-03-21 13:58 | W.PM.OPSUD ---
Surgery/Procedure H&P Update DATE OF PROCEDURE: March 21, 2024 DATE H&P PERFORMED: 03/18/24 H&P UPDATE INFORMATION: I have reviewed H&P completed within last 30 days, I have examined patient prior to procedure and No changes to prior documentation () PLANNED PROCEDURE: Operation Date: 03/21/24 14:10 Proposed Procedures p Post Bilateral Tubal Ligation(Not Applicable) - Sonu Isaac MD
--- NOTE | 2024-03-21 14:00 | PC.NURSE ---
pt to OR2 for tubal.
--- NOTE | 2024-03-21 14:00 | P.ANESASSM_ITS ---
Pre-Anesthetic Assessment Height/Weight: Height 1.78 m Weight 88.451 kg Temp Pulse Resp BP Pulse Ox O2 Del Method 98.7 F 71 16 116/66 99 Room Air 03/21/24 09:11 03/21/24 09:11 03/21/24 09:11 03/21/24 09:11 03/21/24 06:11 03/21/24 09:11 Preop Diagnosis: Undessired fertitity Operation Date: 03/21/24 14:10 Proposed Procedures p Post Bilateral Tubal Ligation(Not Applicable) - Sonu Isaac MD Was Beta Neda taken within 24 hours: N/A Was Clonidine taken within 24 hours: N/A Social No alcohol Exam alert, oriented x 3, clear to auscultation bilaterally and regular rate & rhythm Airway Submandibular: within normal limits Cervical ROM: within normal limits Mallampati: Class II Dentition: full History/ROS No significant history except as noted and No significant complaints Pulmonary None reported CV/HEM None reported None reported Hepatic None reported GI None reported Metabolic None reported Musc/skel None reported Neuropsych None reported Anesthetic Plan ASA status: 2 Anesthesia: Anesthesia Evaluation and General Risk of > 500 ml blood loss (7ml/kg in children): No Medications/Allergies Home Medications Medication Instructions Recorded Confirmed Last Taken Type vits no.126-ferrous fum 1 tab PO DAILY 09/15/23 03/20/24 02/03/24 History 28 mg iron-folic acid 800 mcg tablet (Classic ) famotidine 20 mg tablet (Pepcid) 20 mg PO DAILY 12/08/23 03/20/24 02/03/24 History ferrous sulfate 325 mg (65 mg 325 mg PO BID Anemia 30 days #60 02/04/24 03/20/24 Unknown Rx iron) tablet tabs Allergies Allergy/AdvReac Type Severity Reaction Status Date / Time codeine Allergy Intermediate just Verified 03/04/24 09:22 doesn't like the way it makes her feel. Current Medications Generic Name Dose Route Start Last Admin Trade Name Freq PRN Reason Stop Dose Admin Calcium Carbonate 1,000 mg 03/20/24 08:27 03/20/24 22:38 Calcium Carbonate 500 Mg Chew Tablet PO 1,000 mg Q4H PRN Administration Heartburn/Indigestion (Use 1st) Citric Acid/Sodium Citrate 30 ml 03/21/24 10:25 03/21/24 13:57 Citric Acid-Sodium Citrate 30 Ml Udc PO 30 ml PRN PRN Administration PRIOR TO SURGERY Docusate Sodium 100 mg 03/21/24 09:00 03/21/24 09:13 Docusate Sodium 100 Mg Capsule PO Not Given BID RYDER Famotidine 20 mg 03/21/24 09:00 03/21/24 09:13 Famotidine 20 Mg Tablet PO Not Given DAILY RYDER Famotidine 20 mg 03/21/24 10:25 03/21/24 13:57 Famotidine 20 Mg/2 Ml Inj IVP 20 mg PRN PRN Administration PRIOR TO SURGERY Fentanyl 25 - 100 mcg 03/20/24 08:27 03/20/24 19:26 Fentanyl 50 Mcg/Ml Inj 2ml IVP 25 mcg Q1H PRN Administration SEVERE PAIN Ferrous Sulfate 325 mg 03/21/24 09:00 03/21/24 09:13 Ferrous Sulfate Ec 325 Mg Tablet PO Not Given BID RYDER Dextrose/Lactated Ringer's 1,000 mls @ 125 mls/hr 03/20/24 08:30 03/20/24 23:15 Dextrose 5%-Lactated Ringers IV 0 mls/hr .Q8H RYDER Infusion Lactated Ringer's 1,000 mls @ 999 mls/hr 03/20/24 08:27 03/20/24 20:07 Lactated Ringers IV Infused .Q1H1M PRN Infusion BLEEDING Lactated Ringer's 1,000 mls @ 999 mls/hr 03/20/24 08:27 03/21/24 13:43 Lactated Ringers IV 999 mls/hr .Q1H1M PRN Administration Per L&D Rescitation Protocol Ropivacaine 100 mg in 50 mls @ 10 mls/hr 03/20/24 19:30 03/21/24 01:00 Naropin Syringe EPIDURAL 0 mls/hr .Q5H RYDER Infusion Cefazolin Sodium 2,000 mg/ 50 mls @ 100 mls/hr 03/21/24 13:49 03/21/24 13:58 Sodium Chloride IV 03/21/24 14:18 100 mls/hr [employer] ONE Administration Protocol Ibuprofen 800 mg 03/21/24 09:00 03/21/24 09:14 Ibuprofen 800 Mg Tablet PO Not Given TID RYDER Metoclopramide HCl 10 mg 03/21/24 10:25 03/21/24 13:57 Metoclopramide 5 Mg/Ml Sdv 2 Ml IVP 10 mg PRN PRN Administration PRIOR TO SURGERY Prenat Multivit/Poultry Buyer/Iron/Folic Ac 1 each 03/21/24 09:00 03/21/24 09:14 Vit No.130/Iron/Folic 1 Each Tablet PO Not Given DAILY RYDER PFSH Anesthesia Medical History No pertinent past medical history neghx: htn,dm,thyroid,dvt/pe PCP: none PMS (premenstrual syndrome) Dysmenorrhea Surgical History H/O hand surgery right H/O dilation and curettage performed by Dr. Isaac Family History Father Hypertension Cancer lung cancer dx at age 60, metastasized, . Sister Cancer cancer dx at age 37,unknown type, PET scan suggestive of colon and breast. Denies family history of Colon cancer Ovarian cancer Diabetes Clotting disorder Heart disease Hyperlipidemia Breast cancer Anesthesia complication Bleeding disorder Uterine cancer Thyroid disease Stroke Female Reproductive History : 1 Data Anesthesia 03/20/24 07:40 Short CBC 03/20/24 Range/Units 07:40 WBC 11.30 (3.29-11.43) 10^3/uL Hgb 10.80 L (11.27-16.99) g/dL Hct 32.6 L (36-47) % MCV 91.6 (85-98) fl Plt Count 296 (157-399) 10^3/cmm Neut % (Auto) 70.5 % Neut # (Auto) 7.95 H (1.8-7.7) 10^3/uL Blood Bank 03/20/24 07:40 Blood Type A Positive Rho(D) Type Rh positive Antibody Screen Negative Cardiac Studies: 2 No Data to Display
[2024-03-21] MEDS: BUPivacaine 0.5% INJ 10 mL INJECTION (14:16)
--- NOTE | 2024-03-21 14:46 | PM.OP ---
Operative Report Date of procedure: March 21, 2024 Pre-op diagnosis: Started by spontaneous vaginal delivery. Desire permanent sterilization Post-op diagnosis: same Post-op findings: Enlarged uterus Procedure done: bilateral salpingectomy Specimens removed/disposition: Left and right fallopian tube Surgeon: Sonu Isaac MD Estimated blood loss (mL): 5 IV fluids (mL): 500 Complications: None Brief History: Mrs. Martines 34-year-old female G2, P1 status post spontaneous vaginal delivery. Desires permanent sterilization. Procedure: The patient was informed of the risks and benefits of the procedure. Risks included but were not limited to bleeding, infection, and injury to internal organs. The patient was counseled on the risk of sterilization failure. The patient was informed that in the event a occurs the risk of ectopic is increased. The patient was counseled that bilateral tubal ligation is intended to be permanent and nonreversible. She was also counseled that there are nonpermanent forms of control available to her. The patient expressed understanding of the risks involved, all questions were answered, and the patient consented to the procedure. After assuring informed consent. The patient was taken to the operating room and general anesthesia administered. Time-out procedure was performed. A small, transverse, infraumbilical skin incision was made with a scalpel, and the incision was carried down through the underlying fascia until the peritoneum was identified and entered. The left fallopian tube was identified, brought into the incision and grasped with a Walnut clamp. The tube was then followed out to the fimbria. An avascular midsection of the fallopian tube was grasped with a Walnut clamp and brought into a knuckle. Using the LigaSure fine Fusion device the falopian tube was clamped, seal and cut. The specimen was sent to pathology. Excellent hemostasis was noted, and the tube was returned to the abdomen. The same procedure was performed on the opposite fallopian tube. The fascia was then closed with O-Vicryl in a single layer. The skin was closed with 3-O Monocryl in a subcuticular fashion. The patient tolerated the procedure well. Needle and sponge counts were correct times 3.
[2024-03-21] MEDS: HYDROcodone-acetaminophen 5-325 mg Tablet PO (15:40)
--- NOTE | 2024-03-21 16:30 | PC.NURSE ---
Pt back to room from OR via bed. Instructed to call nursing for assistance getting up out of bed for the first time. Ice water and juice provided.
--- NOTE | 2024-03-21 16:40 | PC.NURSE ---
Pt up to bathroom without difficulty. Void and juju care by pt. Juju pad changed. Pt back to bed without assistance.
[2024-03-21] MEDS: docusate sodium 100 mg Capsule PO (17:46)
[2024-03-21] MEDS: ferrous sulfate EC 325 mg Tablet PO (17:46)
[2024-03-21] MEDS: lanolin oint 7 gm 1 APPLIC TOPICAL (22:37)
[2024-03-21] MEDS: ibuprofen 800 mg tablet PO (22:37)
[2024-03-22 04:32] VITALS: BP 108/64; PULSE 58; RESP 18; TEMP 36.6; O2SAT 98
[2024-03-22 04:44] LABS: Hematocrit 26.7 % (36-47); Mean Corpuscular HGB Conc 32.6 g/dL (30-55); Mean Corpuscular Hemoglobin 30.1 pg (27-33); Mean Corpuscular Volume 92.4 fl (85-98); Mean Platelet Volume 9.3 fL (7.4-10.4); Platelet Count 220 10^3/cmm (157-399); Red Blood Count 2.89 10^6/uL (3.85-5.65); Red Cell Distribution Width 14.7 % (12.1-15.1); White Blood Count 20.11 10^3/uL (3.29-11.43)
--- NOTE | 2024-03-22 08:00 | ANE.PACU2 ---
Inpatient post-anesthesia follow up: Airway intact: Yes Vital signs: Temperature 98.1 F Pulse Rate 77 Respiratory Rate 16 Blood Pressure 115/75 Pulse Oximetry 98 Oxygen Delivery Me thod Room Air Oxygen Flow Rate Fraction of Inspir ed Oxygen Hydration adequate: Yes Nausea and vomiting: No Pain level: 1 Mental status: Baseline Epidural Start/End: Epidural Start Date: 03/20/24 Epidural Start Time: 19:50 Epidural End Date: 03/21/24 Epidural End Time: 01:08
--- NOTE | 2024-03-22 08:06 | PM.OBGYDC ---
Discharge Providers [employer] Date of Admission: 03/20/24 07:15 Date of Discharge: 03/22/24 Attending Provider at Admission: Sonu Isaac MD Attending Provider at Discharge: Sonu Isaac MD Primary [employer]: Sonu Isaac MD Primary Care Provider: Myles Hopkins MD Diagnoses at Discharge Discharge Diagnosis (1) Sterilization: Status: Acute (2) Term delivered: Status: Acute Reason for Visit Reason for Visit: induction of labor Brief History: Mrs. Martines 34-year-old female G5, P0 with an LORRAINE of 2023 and an EGA at 39+3 Hospital Course Hospital Course Mrs. Martines 34-year-old female G5, P0, with term at an estimated gestational age of 39+3, admitted to labor and delivery for elective induction. She received misoprostol for cervical ripening and follow-up with a spontaneous labor and progressed to have spontaneous vaginal delivery without complications. She had requested sterilization and the procedure was performed without complications the following morning after delivery. /postop day observation uneventful. He is afebrile hemodynamically stable. Tolerating diet well. Ambulating without difficulty. She was counseled regarding pelvic rest for 6 weeks (no sex, no tampons, no vaginal douches). Return to the emergency room if any fever, increased bleeding or pain. Information Peripartum Data: Delivery Method: Vaginal Physical Exam Narrative: GA; alert and oriented x 3 HEENT: normal Breasts: engorged Nipples - skin intact Lungs; clear to auscultation Heart: regular rhythm, no murmurs. Abd: Appropriately tender. BS+. Uterine fundus below umbilicus. No Fundal Tenderness. Nontender, minimal tenderness, incision clean and dry, no redness, pain or edema. Perineum: normal lochia. Extremities: no edema, no cyanosis, no tenderness. Urinary Catheter Management: Hdz Latex: Cath Placed During This Visit: yes, but has since been removed by the nurse Reason for Continuing Indwelling Catheter: Decision to DC Catheter Urinary Catheter Date of Insertion: 03/20/24 Urinary Catheter Time of Insertion: 20:35 Date Urinary Catheter Removed: 03/21/24 Time Urinary Catheter Discontinued: 00:40 History History History 5 Term 0 0 Miscarriages/Ectopic 4 Living Children 0 Discharge Data Studies Completed and Pending Pending at discharge Category Date Time Status Pathology: Surgical [PTH] Routine Pth 03/21/24 16:06 Received Laboratory Results WBC 20.11 10^3/uL (3.29-11.43) H 03/22/24 04:35 RBC 2.89 10^6/uL (3.85-5.65) L 03/22/24 04:35 Hgb 8.70 g/dL (11.27-16.99) L 03/22/24 04:35 Hct 26.7 % (36-47) L 03/22/24 04:35 MCV 92.4 fl (85-98) 03/22/24 04:35 MCH 30.1 pg (27-33) 03/22/24 04:35 MCHC 32.6 g/dL (30-55) 03/22/24 04:35 RDW 14.7 % (12.1-15.1) 03/22/24 04:35 Plt Count 220 10^3/cmm (157-399) 03/22/24 04:35 MPV 9.3 fL (7.4-10.4) 03/22/24 04:35 Neut % (Auto) 70.5 % 03/20/24 07:40 Lymph % (Auto) 22.9 % 03/20/24 07:40 Crenshaw % (Auto) 4.4 % 03/20/24 07:40 Eos % (Auto) 0.6 % 03/20/24 07:40 Baso % (Auto) 0.4 % 03/20/24 07:40 Neut # (Auto) 7.95 10^3/uL (1.8-7.7) H 03/20/24 07:40 Lymph # (Auto) 2.6 10^3/uL (0.8-4.8) 03/20/24 07:40 Crenshaw # (Auto) 0.5 10^3/uL (0.2-0.9) 03/20/24 07:40 Eos # (Auto) 0.1 10^3/uL (0.0-0.8) 03/20/24 07:40 Baso # (Auto) 0.1 10^3/uL (0.0-0.1) 03/20/24 07:40 Nucleated RBC % (auto) 0 % 03/20/24 07:40 Nucleated RBCs # 0.0 /100WBC 03/20/24 07:40 Blood Type A Positive 03/20/24 07:40 Rho(D) Type Rh positive 03/20/24 07:40 Antibody Screen Negative 03/20/24 07:40 Vitals Last Vital Signs Temp 97.8 F 03/22/24 04:32 Pulse 58 L 03/22/24 04:32 Resp 18 03/22/24 04:32 BP 108/64 03/22/24 04:32 Pulse Ox 98 03/22/24 04:32 O2 Del Method Room Air 03/22/24 04:32 Results Labs OB ([facility]): Obstetrics US 02/14/24 Blood Type A Positive 03/20/24 Antibody Screen Negative 03/20/24 Hct 26.7 % (36-47) L 03/22/24 Hgb 8.70 g/dL (11.27-16.99) L 03/22/24 Rho(D) Type Rh positive 03/20/24 Plt Count 220 10^3/cmm (157-399) 03/22/24 Hep Bs Antigen Non-reactive (Nonreactive) 08/29/23 Hepatitis C Antibody Non-reactive (Nonreactive) 08/29/23 Rubella IgG Antibody 274.7 IU/mL (0.0-10.0) H 08/29/23 RPR Nonreactive (Nonreactive) 08/29/23 HIV 1&2 Ab & HIV 1 Ag Non-reactive (Non-Reactiv) 08/29/23 C.trachomatis RNA (TMA) Not detected (NOT DETECTED) 09/15/23 N.gonorrhoeae RNA (TMA) Not detected (NOT DETECTED) 09/15/23 T. vaginalis Amp RNA Not detected (NOT DETECTED) 09/15/23 Chlamydia/GC Comment See note 09/15/23 Cystic Fibrosis Screen Negative 09/15/23 Gest Glucose Tolerance 72 mg/dL (70-139) 12/08/23 Hemoglobin A1c 4.6 % (4.0-6.0) 10/07/22 Uric Acid 4.1 mg/dL (2.4-5.7) 01/19/24 Ser , Semi-Qnt 54.07 mIU/mL 03/29/23 HCG, Qual Positive (Negative) H 08/23/23 Urine Opiates Screen Negative ng/mL (Negative) 08/29/23 Ur Barbiturates Screen Negative ng/mL (Negative) 08/29/23 Ur Phencyclidine Scrn Negative ng/mL (Negative) 08/29/23 Ur Amphetamines Screen Negative ng/mL (Negative) 08/29/23 U Benzodiazepines Scrn Negative ng/mL (Negative) 08/29/23 Urine Cocaine Screen Negative ng/mL (Negative) 08/29/23 U Marijuana (THC) Screen Negative ng/mL (Negative) 08/29/23 Micro Urine Specimen 08/29/23 Pap Smear Interpret See note 10/07/22 Discharge Plan Discharge Patient Disposition: Home Condition: Stable Prescriptions: New hydrocodone-acetaminophen 5-325 mg tablet 1 tab PO Q4H PRN (Reason: pain) Qty: 10 0RF acetaminophen 325 mg capsule 325 mg PO Q4H PRN (Reason: fever or postoperative pain) Qty: 60 0RF ibuprofen 800 mg tablet 800 mg PO TID PRN (Reason: pain) Qty: 60 0RF docusate sodium [Colace] 100 mg capsule 100 mg PO BID Qty: 60 0RF ferrous sulfate [Iron (ferrous sulfate)] 325 mg (65 mg iron) tablet 325 mg PO BID Qty: 60 0RF Continued Classic 28 mg iron- 800 mcg tablet 1 tab PO DAILY famotidine [Pepcid] 20 mg tablet 20 mg PO DAILY ferrous sulfate 325 mg (65 mg iron) tablet 325 mg PO BID 30 Days Qty: 60 3RF Discharge Orders: Discharge Order (Routine); Ordered 03/22/24 Ordered By: Sonu Isaac Referrals: Sonu Isaac MD [Physician] - 6 Weeks Discharge Diet: Usual diet Discharge Activity: Limit activity as instructed Patient Instructions: Depression (DC), Bleeding (GEN), Opioid Safety (DC), Preeclampsia and Eclampsia After Delivery (GEN), Hemorrhage (DC), Hemorrhage (GEN), OB Discharge Report, OB Food/Drug Interaction Guide, Opioid Safety, OB Home Care, OB Vaginal Deliveries - [facility], Abnormal Bleeding Activity Restrictions/Additional Instructions: 1. Please call [facility] on next working day to make your [post-operative] appointment in 2 weeks and 6 weeks visit. 2. Please stay home until you come back to the clinic on first post-hospatilization check up. 3. Please follow instructions on your medications CAREFULLY. 4. If you have abdominal incision, do not cover it unless dressing is necessary because of drainage. OK to shower, but avoid bath. Leave steri-strips until they fall off. If they are still on one week after surgery, you may remove them. 5. If you had vaginal surgery or vaginal repair, Dr. Isaac may instruct you to take SITZ bath. 6. Yellow, blood tinged odorous vaginal discharge is usually normal after hysterectomy or vaginal surgeries. 7. No SEXUAL INTERCOURSE, tampons, or douches until you are completely released from the post-operative care. 8. Avoid constipation by eating right and maybe using some Metamucil or Milk of Magnesia. 9. All prescription refills are given during the working hours. Please do no wait till it runs out. Call the clinic at [phone] before your medication runs out. The clinic will get in touch with your doctor to prescribe medications if necessary. 10. Please remain within 40 mile radius from our hospital because emergencies do happen now and then during the post-operative period. 11. If you have stairs at home, take one step at a time slowly and minimize the number of trips. It helps to stay in one floor for the next few days. No lifting except what you can lift by one hand until you are released from the post-operative care. 12. Driving is discouraged until you are well healed. It may be 3-4 weeks before you feel strong enough to drive. You should be able to turn and look through the rear window without pain and you should be able to push the brake pedal very hard without pain before you drive. No fast rules, but SAFETY should be your primary concern. DO NOT drive if you are on sedating medications such as narcotics. 13. Call the clinic (during working hours) to make urgent appointment or go to the Emergency room, if any of the following occurs: i. Vaginal bleeding becomes heavy, more than a period. ii. Incision becomes red and sore, or drains pus. iii. Your TEMPERATURE is over 100.4F or you have chill. iv. IV site becomes red and swollen (a little ``knot?? is usually OK) v. Persistent nausea and vomiting vi. Persistent constipation or diarrhea vii. Rash or allergic reaction to medications. Discharge Attestations [employer] Time Spent in Discharge Care*: greater than 30 min Coding Level of Care Code Acute Code for Chg Fwd Diagnoses Sterilization Z30.2 Term delivered O80
[2024-03-22 09:00] VITALS: BP 115/75; PULSE 77; RESP 16; TEMP 36.7
[2024-03-22 09:30] VITALS: BP 115/75; PULSE 77; RESP 16; TEMP 36.7
== END 2024-03-22 09:30 | disposition home or self-care (01) | DRG 798 ==
LOC: OPOB 07:16 → OBGYN 07:16
PROVIDERS: Admitting Provider Obstetrics & Gynecology; PCP Family Medicine; Visit Provider Obstetrics & Gynecology
PROC: 10E0XZZ Delivery of Products of Conception, External Approach (ICD-10-PCS; CPT 58605; principal; 2024-03-21 14:00)
DX: O80 Encounter for full-term uncomplicated delivery (principal); Z37.0 Single live birth; Z3A.39 39 weeks gestation of pregnancy
CPT/HCPCS: 36415; 51702; 59025; 59409; 85025; 85027; 86850; 86900; 88302; 96374; 96376; 98960; 99211; J0690; J1100; J1885; J2405; J2704; J2710; J2765; J2795; J3010; J3490; J7120; J7121